=== PATIENT | female | born 1990 | race Caucasian/White ===

== ENCOUNTER 2017-11-08 09:27 | Emergency (ER) | payer MEDICAID, SELFPAY ==
[2017-11-08] MEDS ORDERED: Ondansetron ODT 4 MG TAB ONE (09:55)
[2017-11-08 10:28] LABS: #Eosinphils 0.1 thou/uL (0.0-0.7); #Lymphocytes 1.9 thou/uL (1.20-3.40); #Monocytes 0.4 thou/uL (0.11-0.59); #Neutrophils 3.7 thou/uL (1.40-6.50); %Basophils 0.5 % (0.0-1.0); %Neutrophils 59.6 % (42.0-75.0); Hemoglobin 13.3 g/dL (12.0-16.0); Mean Corpuscular HGB CONC 33.1 g/dL (32.0-36.0); Mean Corpuscular Hemoglobin 30.8 pg (27.0-31.0); Mean Corpuscular Volume 92.9 fL (78.0-98.0); Mean Platelet Volume 8.7 fL (7.4-10.4); Platelet Count 209 thou/uL (130-400); Red Blood Cell (RBC) Count 4.33 mill/uL (4.20-5.40); White Blood Cell (WBC) Count 6.2 thou/uL (4.8-10.8)
[2017-11-08 10:52] LABS: Bilirubin Negative (Negative); Blood, Urine Large (Negative); Glucose, Urine (Dipstick) Negative (Negative); Leukocyte Negative (Negative); Nitrite Negative (Negative); Protein, Urine (Dipstick) Negative (Neg-Trace); Urobilinogen 0.2 mg/dL (0.2-1.0)
[2017-11-08 10:54] LABS: Clarity Clear (Clear)
[2017-11-08 11:07] LABS: Bacteria/HPF None Seen HPF (None Seen); Hyaline Casts/LPF 0-3 HYALINE CAST LPF (0-3 Hyaline); Squamous Epithelial 0-3 HPF (0-3); WBC/HPF 0-3 HPF (0-3)
[2017-11-08 11:12] LABS: ALT (SGPT) 35 U/L (8-55); AST (SGOT) 48 U/L (5-34); Albumin 4.2 g/dL (3.5-5.0); Alkaline Phosphatase 53 U/L (40-150); Anion Gap 14 mmol/L (10-20); BUN (Urea Nitrogen) 10 mg/dL (7.0-18.7); Bilirubin, Total 0.3 mg/dL (0.2-1.2); Calc. Creatinine Clearance 0 mL/min (70-130); Calcium 8.9 mg/dL (7.8-10.44); Carbon Dioxide 19 mmol/L (22-29); Chloride 105 mmol/L (98-107); Estimated GFR-MDRD Greater than 90; Globulin 3.9 g/dL (2.4-3.5); Glucose 84 mg/dL (70-105); Protein, Total 8.1 g/dL (6.0-8.3); Sodium 132 mmol/L (136-145)
--- NOTE | 2017-11-08 11:31 | ULT ---
PELVIS ULTRASOUND: INDICATIONS: Elective AB seven days ago. Persistent vaginal bleeding. TECHNIQUE: Transabdominal ultrasound of the pelvis is performed. The patient refused endovaginal exam. FINDINGS: The uterus has a normal sonographic appearance. Uterine measurements recorded at 10 x 5 x 5.5 cm. The endometrial stripe appears within the normal range, measured at 6 to 8 mm. No endometrial fluid or abnormal echogenicity identified. Both ovaries are identified and appear unremarkable. Color Doppler and spectral analysis demonstrate blood flow to both ovaries. No free fluid. IMPRESSION: Unremarkable pelvic ultrasound. POS: [facility]
[2017-11-08 12:21] LABS: Anion Gap 12 mmol/L (10-20); BUN (Urea Nitrogen) 10 mg/dL (7.0-18.7); Calc. Creatinine Clearance 0 mL/min (70-130); Calcium 8.8 mg/dL (7.8-10.44); Carbon Dioxide 25 mmol/L (22-29); Chloride 105 mmol/L (98-107); Estimated GFR-MDRD Greater than 90; Glucose 81 mg/dL (70-105); Sodium 138 mmol/L (136-145)
== END 2017-11-08 13:00 | disposition home or self-care (01) ==
LOC: ERS 09:27
DX: N93.9 Abnormal uterine and vaginal bleeding, unspecified (principal); G43.909 Migraine, unspecified, not intractable, without status migrainosus
CPT/HCPCS: 36415; 76856; 80053; 81003; 81015; 84702; 85025; 93976; 96374; J2270; Q0162

== ENCOUNTER 2018-06-01 08:12 | Emergency (ER) | payer OTHER, SELFPAY ==
[2018-06-01 09:30] LABS: Bilirubin Negative (Negative); Blood, Urine Large (Negative); Clarity CLEAR (Clear); Glucose, Urine (Dipstick) Negative (Negative); Leukocyte Negative (Negative); Nitrite Negative (Negative); Protein, Urine (Dipstick) Negative (Neg-Trace); Urobilinogen 0.2 mg/dL (0.2-1.0); pH, Urine 5.5 (5.0-9.0)
[2018-06-01 09:32] LABS: Bacteria/HPF None Seen HPF (None Seen); Hyaline Casts/LPF 0-3 HYALINE CAST LPF (0-3 Hyaline); Pathc Cast-AUWi Flag 0.43 (0-2.49); Pregnancy Test - Urine (BHCG) Negative (Negative); Pregu Control Background? CLEAR/WHITE (CLR/WHITE); Pregu Control Bar Appear? YES (CONTROL BAR); RBC/HPF GREATER THAN 50-TNTC HPF (0-3); Squamous Epithelial 0-3 HPF (0-3); WBC/HPF 0-3 HPF (0-3)
--- NOTE | 2018-06-01 10:54 | ULT ---
PELVIC ULTRASOUND WITH DOPPLER: (Transabdominal, transvaginal, Tineo scale, color flow, and spectral Doppler) Date: 06/01/18 HISTORY: Vaginal bleeding and cramping. Negative test. FINDINGS: The uterus measures 8.6 x 3.9 x 4.6 cm, without focal mass or endometrial fluid. The endometrium josé miguel ures 4.0 mm in thickness. The right ovary measures 2.8 x 2.0 x 2.8 cm. The left ovary measures 4.0 x 2.9 x 3.9 cm. Flow is demo nstrated to both ovaries. There is a 2.6 cm complex septated cyst in the left ovary. There is a small amount of free fluid adjacent to the left ovary and in the cul-de-sac. IMPRESSION: 2.6 cm complex cystic mass in the left ovary. A follow-up exam is recommended in 8-10 weeks. POS: [facility]
[2018-06-02 21:24] LABS: Chlamydia by PCR DETECTED (NotDetected); GC by PCR DETECTED (NotDetected)
== END 2018-06-01 12:00 | disposition home or self-care (01) ==
LOC: ERS 08:12
DX: N83.202 Unspecified ovarian cyst, left side (principal); N76.0 Acute vaginitis; G43.909 Migraine, unspecified, not intractable, without status migrainosus; F41.9 Anxiety disorder, unspecified; F32.9 Major depressive disorder, single episode, unspecified
CPT/HCPCS: 76856; 81003; 81015; 81025; 87480; 87491; 87510; 87591; 87660

== ENCOUNTER 2018-06-03 10:59 | Emergency (ER) | payer OTHER ==
[2018-06-03] MEDS ORDERED: Azithromycin 250 MG TAB ONE (11:13)
[2018-06-03] MEDS ORDERED: Lidocaine 1% PF 5 ML VIAL ONE (11:13)
[2018-06-03] MEDS ORDERED: cefTRIAXone\\ROCEPHIN 250 MG VIAL ONE (11:13)
== END 2018-06-03 11:25 | disposition home or self-care (01) ==
LOC: ERS 10:59
DX: Z11.3 Encounter for screening for infections with a predominantly sexual mode of transmission (principal)
CPT/HCPCS: 96372; J0696; J2001

== ENCOUNTER 2018-09-26 08:05 | Emergency (ER) | payer SELFPAY | END 2018-09-26 09:15 | disposition home or self-care (01) | LOC: ERS 08:05 | DX: J02.9 Acute pharyngitis, unspecified (principal); F41.9 Anxiety disorder, unspecified; F32.9 Major depressive disorder, single episode, unspecified; G43.909 Migraine, unspecified, not intractable, without status migrainosus | CPT/HCPCS: 87081; 87430; 99283 ==

== ENCOUNTER 2019-01-03 09:03 | Emergency (ER) | payer OTHER, SELFPAY ==
[2019-01-03 10:55] LABS: Bilirubin Negative (Negative); Blood, Urine Negative (Negative); Clarity Clear (Clear); Glucose, Urine (Dipstick) Normal (Negative); Leukocyte 25 Leu/uL (Negative); Nitrite Negative (Negative); Protein, Urine (Dipstick) Negative (Neg-Trace); RBC/HPF 0-3 HPF (0-3); Urobilinogen Normal mg/dL (Less than 2); WBC/HPF 0-3 HPF (0-3)
[2019-01-03 10:59] LABS: #Eosinphils 0.2 thou/uL (0.0-0.7); #Lymphocytes 2.4 thou/uL (1.20-3.40); #Monocytes 0.6 thou/uL (0.11-0.59); %Basophils 0.4 % (0.0-1.0); %Eosinophils 2.2 % (0.0-10.0); %Lymphocytes 28.9 % (21.0-51.0); %Monocytes 7.1 % (0.0-10.0); %Neutrophils 61.4 % (42.0-75.0); Hemoglobin 11.9 g/dL (12.0-16.0); Mean Corpuscular HGB CONC 34.9 g/dL (32.0-36.0); Mean Corpuscular Hemoglobin 31.6 pg (27.0-31.0); Mean Corpuscular Volume 90.5 fL (78.0-98.0); Mean Platelet Volume 8.4 fL (7.4-10.4); Platelet Count 234 thou/uL (130-400); Red Blood Cell (RBC) Count 3.77 mill/uL (4.20-5.40); White Blood Cell (WBC) Count 8.1 thou/uL (4.8-10.8)
[2019-01-03 11:05] LABS: Bacteria/HPF 1+ HPF (None Seen)
[2019-01-03] MEDS ORDERED: Acetaminophen 500 MG TAB ONE (11:15)
[2019-01-03 11:18] LABS: ALT (SGPT) 15 U/L (8-55); AST (SGOT) 14 U/L (5-34); Albumin 3.7 g/dL (3.5-5.0); Alkaline Phosphatase 55 U/L (40-150); Anion Gap 12 mmol/L (10-20); BUN (Urea Nitrogen) 7 mg/dL (7.0-18.7); Bilirubin, Total 0.2 mg/dL (0.2-1.2); Calc. Creatinine Clearance 0 mL/min (70-130); Calcium 9.4 mg/dL (7.8-10.44); Carbon Dioxide 24 mmol/L (22-29); Chloride 103 mmol/L (98-107); Estimated GFR-MDRD Greater than 90; Globulin 3.3 g/dL (2.4-3.5); Glucose 61 mg/dL (70-105); Potassium 4.1 mmol/L (3.5-5.1); Sodium 135 mmol/L (136-145)
--- NOTE | 2019-01-03 12:06 | ULT ---
PELVIC ULTRASOUND: HISTORY: Pelvic pain. FINDINGS: Real-time imaging of the pelvis shows an intrauterine gestational sac and pole. heart ra te is 160 b.p.m. Gestational sac measurements are 5.6 cm corresponding to 11 weeks 4 days. [place] to rump length measurement is 5.3 mm corresponding to 123 weeks 0 days. Placenta cannot be localized a t this time. There is a tiny fluid collection adjacent to the gestational sac and along the margin o f what appears to be the anteriorly forming placenta could indicate a tiny subchorionic bleed. The left ovary is somewhat difficult to visualize but appears unremarkable. The right adnexa is nathan l in appearance. DOPPLER EVALUATION WITH SPECTRAL ANALYSIS: Normal flow is shown to both adnexa. IMPRESSION: 1. Single viable intrauterine with measurements corresponding to a gestational age of 11 w eeks 6 days, estimated date of delivery 07/19/2019. 2. Questionable tiny subchorionic bleed. This measures approximately 4-5 mm in thickness x 12 mm in length. POS: [facility]
== END 2019-01-03 13:07 | disposition home or self-care (01) ==
LOC: ERS 09:03
DX: O99.89 Other specified diseases and conditions complicating pregnancy, childbirth and the puerperium (principal); R10.2 Pelvic and perineal pain; O99.351 Diseases of the nervous system complicating pregnancy, first trimester; O99.341 Other mental disorders complicating pregnancy, first trimester; G43.909 Migraine, unspecified, not intractable, without status migrainosus; F31.9 Bipolar disorder, unspecified; Z3A.12 12 weeks gestation of pregnancy
CPT/HCPCS: 36415; 76856; 80053; 81003; 81015; 85025; 93976

== ENCOUNTER 2019-01-20 09:00 | Emergency (ER) | payer OTHER ==
[2019-01-20 09:38] LABS: #Eosinphils 0.2 thou/uL (0.0-0.7); #Lymphocytes 2.1 thou/uL (1.20-3.40); #Monocytes 0.4 thou/uL (0.11-0.59); #Neutrophils 4.2 thou/uL (1.40-6.50); %Basophils 0.4 % (0.0-1.0); %Eosinophils 2.7 % (0.0-10.0); %Lymphocytes 29.8 % (21.0-51.0); %Monocytes 6.4 % (0.0-10.0); %Neutrophils 60.8 % (42.0-75.0); Hemoglobin 12.2 g/dL (12.0-16.0); Mean Corpuscular HGB CONC 35.1 g/dL (32.0-36.0); Mean Corpuscular Hemoglobin 31.2 pg (27.0-31.0); Mean Corpuscular Volume 88.9 fL (78.0-98.0); Mean Platelet Volume 8.5 fL (7.4-10.4); Platelet Count 218 thou/uL (130-400); RBC Distribution Width 11.9 % (11.5-14.5); White Blood Cell (WBC) Count 6.9 thou/uL (4.8-10.8)
[2019-01-20] MEDS ORDERED: Acetaminophen 500 MG TAB ONE (09:40)
--- NOTE | 2019-01-20 09:56 | ULT ---
Exam: OB ultrasound Limited: HISTORY: Abdominal cramping and vaginal bleeding. Transabdominal OB ultrasound greater than 14 weeks is performed. Single viable intrauterine fetus is noted in variable presentation. Placenta is anterior. Amniotic fl uid is within normal limits. heart rate 150 bpm. anatomy was not evaluated. biometry: BPD 2.4 cm--14 weeks 0 days Head circumference 9.8 cm--14 weeks 4 days Abdominal circumference 8.0 cm--14 weeks 3 days Femur length 1.4 cm--14 weeks 0 days There is a small fluid collection anteriorly the left side of the placenta concerning for small subch orionic hemorrhage. IMPRESSION: Early viable intrauterine at 14 weeks 1 day EDC 07/20/2019 Persistent small fluid collection adjacent to the placenta concerning for subchorionic hemorrhage.
[2019-01-20 11:19] LABS: Bacteria/HPF None Seen HPF (None Seen); Bilirubin Negative (Negative); Blood, Urine Trace (Negative); Clarity Clear (Clear); Glucose, Urine (Dipstick) Normal (Negative); Leukocyte Negative Leu/uL (Negative); Nitrite Negative (Negative); Protein, Urine (Dipstick) 10 mg/dL (Neg-Trace); Squamous Epithelial 0-3 HPF (0-3); WBC/HPF 0-3 HPF (0-3)
== END 2019-01-20 11:45 | disposition home or self-care (01) ==
LOC: ERS 09:00
DX: O20.0 Threatened abortion (principal); O99.342 Other mental disorders complicating pregnancy, second trimester; F31.9 Bipolar disorder, unspecified; Z3A.14 14 weeks gestation of pregnancy
CPT/HCPCS: 36415; 76815; 81003; 81015; 84702; 85025; 86900; 86901

== ENCOUNTER 2019-05-22 13:47 | Day surgery (SDC) | payer OTHER ==
[2019-05-22 14:08] VITALS: BMI 35.4
[2019-05-22 14:19] VITALS: BP 122/59; TEMP 99.1
[2019-05-22] MEDS ORDERED: hydrALAZINE 20 MG/ML VIAL SLOW IVP PRN (14:33)
[2019-05-22 15:34] LABS: Bilirubin Negative (Negative); Blood, Urine Negative (Negative); Clarity Clear (Clear); Glucose, Urine (Dipstick) Normal (Negative); Leukocyte Negative Leu/uL (Negative); Nitrite Negative (Negative); Protein, Urine (Dipstick) Negative (Neg-Trace); RBC/HPF 0-3 HPF (0-3); Squamous Epithelial 0-3 HPF (0-3); Urobilinogen Normal mg/dL (Less than 2); WBC/HPF 0-3 HPF (0-3)
[2019-05-22 15:35] LABS: Bacteria/HPF Rare-Few HPF (None Seen)
--- NOTE | 2019-05-23 07:44 | PRG ---
DATE OF SERVICE: 05/22/2019 PRIMARY OB: Brandon Lozada MD CHIEF COMPLAINT: Abdominal cramping. HISTORY OF PRESENT ILLNESS: The patient is a 28-year-old, G6, P3 female with an intrauterine at 30 weeks and 5 days, presenting to Labor and Delivery at the recommendation of her physician for abdominal cramping. The patient reports that she has been feeling since about 11 o'clock this morning and cramping that she initially timed at about every 5 to 6 minutes. She says they last may be 10 seconds or so. They are not incredibly painful, but are present and came following the doctor's recommendations. The patient does report a urinary tract infection earlier in this , but denies any urinary urgency or frequency. She reports she had intercourse a couple of days ago. She reports she is having more discharge than usual, but no odor and no change in the quality of the discharge. She denies any fever, illness, cough, chest pain, or shortness of breath. She is having nausea with isolated episodes of vomiting. Denies diarrhea or constipation. Denies new rashes, hip problems, knee problems, or muscle weakness. She has been having quite a bit of pelvic pain with activity and movement with difficulty lifting and moving her legs now for several weeks. She denies any new rashes. Denies vaginal bleeding or leakage of fluid, urinary urgency or frequency. The patient gets headaches on occasion, couple days a week, resolves with Tylenol usually. PAST MEDICAL HISTORY: Headaches. PAST SURGICAL HISTORY: D and C. SOCIAL HISTORY: Denies drug, alcohol, or tobacco use. ALLERGIES: NO KNOWN DRUG ALLERGIES. MEDICATIONS: vitamins. SOCIAL HISTORY: Denies drug, alcohol, or tobacco use. OB LABS: Blood type is O positive. Antibody screen is negative. VDRL is nonreactive. Hepatitis B surface antigen nonreactive. HIV nonreactive. GC chlamydia negative. She is rubella immune. Her one-hour Glucola is 117. REVIEW OF SYSTEMS: Per HPI. PHYSICAL EXAMINATION: VITAL SIGNS: Blood pressure is 122/66, heart rate of 85, respiratory rate of 20, saturating 95% to 97% on room air, temperature 99.0. GENERAL: She appears to be in no acute distress. She is alert, oriented, cooperative, and pleasant to interact with. HEAD: Normocephalic, atraumatic. LUNGS: Clear to auscultation bilaterally. HEART: Has regular rate and rhythm. ABDOMEN: Gravid, soft, nontender. EXTREMITIES: Nontender. Nonedematous. GENITOURINARY: Vulva is without masses, lesions, or erythema. Vagina is moist. There is minimal discharge present. No unusual odor or color of concern. On digital exam, cervix is closed and thick with very ballotable baby putting no significant pressure on the cervix itself. She does have some significant pain to palpation of her pelvic floor muscles on the right more so than the left. heart tracing baseline is noted to be in the 130s with moderate long-term variability, positive 15/15 accelerations, and no significant decelerations. Tocometer showing some irritability, but no contraction pattern. LABORATORY DATA: UA has been sent and is pending. ASSESSMENT AND PLAN: The patient is a 28-year-old, G6, P3 female having some intermittent cramping. No evidence of labor at this time as she has been having this cramping now for about 4 hours and not developing any significant pattern. Fetus has a category 1 tracing, reactive NST. The patient does show some evidence of contractions, not all felt by the patient. As the patient has no evidence of labor with a closed cervix and no concerns on exam of labored cervix, I have withheld sending a fibronectin. I have not sent VP3 as the patient does not have any discharge to speak of vaginally and the patient denies any douching or washing of her vaginal canal. Once the UA is back, we will plan on discharging the patient with or without antibiotics depending on our findings and will be counseled to follow up with her primary OB as scheduled. Reassurance will be given to her. Job ID: [id number]
== END 2019-05-22 16:01 | disposition home health service (06) ==
LOC: L&D/OP 13:47 → L&D 15:00 → L&D/OP 16:01
PROVIDERS: ATTEND Obstetrics & Gynecology
DX: O99.89 Other specified diseases and conditions complicating pregnancy, childbirth and the puerperium (principal); R10.9 Unspecified abdominal pain; Z3A.30 30 weeks gestation of pregnancy
CPT/HCPCS: 59025; 81001; 99283

== ENCOUNTER 2019-07-06 16:37 | Day surgery (SDC) | payer OTHER ==
[2019-07-06 17:14] VITALS: BP 136/81; TEMP 98.7
--- NOTE | 2019-07-06 18:09 | PDOC.FPROB ---
FMR OB H&P: HPI - History of Present Illness Chief Complaint: Low back pain Indentification: 28 year old at 37.1 wks History of Present Illness: 28 year old at 37.1 wks presents with low back pain and contractions since this afternoon. Patient denies leaking of fluid, vaginal discharge, or vaginal bleeding. Endorses good movement. Primary Care Physician: Kierra FMR OB H&P: Current - Care : 7 Para: [id number] Gestational age: 37.1 wks Due date: 07/26/2019 - OB Labs Blood type: O RH: positive Antibody Screen: negative HIV: negative RPR: negative HepBsAg: negative Rubella: immune Gonorrhea: negative Chlamydia: negative Pap Smear: NILM GBS: negative FMR OB H&P: History - Past Medical History PMH: Hx of headaches - OB History OB History: SAB x3 x3 - COOKIE PADDER History COOKIE PADDER History: Endorses history of gonorrhea - Surgical History Sx History: Denies - Social History Social History: Denies history of alcohol, tobacco, or drug use FMR OB H&P: Medications - Current Home Medications: Medication Instructions Recorded Confirmed Type Vitamin 1 tablet PO DAILY 07/06/19 07/06/19 History Allergies/Adverse Reactions: Allergies Allergy/AdvReac Type Severity Reaction Status Date / Time No Known Allergies Allergy Verified 05/22/19 14:27 FMR OB H&P: ROS - Review of Systems General: denies: fever/chills, fatigue Eyes: denies: vision changes, scotomas ENT: denies: nasal congestion, rhinorrhea, sore throat Respiratory: denies: cough, congestion, shortness of breath Gastrointestinal: reports: abdominal pain. denies: nausea, vomiting, diarrhea Genitourinary (Female): reports: contractions. denies: dysuria, vaginal discharge, vaginal bleeding Musculoskeletal: denies: pain, stiffness Neurologic: denies: numbness, syncope Integumentary: denies: itching, rash, lesions Psychological: denies: depression, anxiety FMR OB H&P: Vital Signs - Maternal Vital signs: Vital Signs - First Documented Temp Pulse Resp BP Pulse Ox 98.7 F 80 20 136/81 99 07/06/19 17:11 07/06/19 17:11 07/06/19 17:11 07/06/19 17:11 07/06/19 17:11 - Heart Tones Baseline: 150 Variability: moderate Acceleration: present Deceleration: absent Category: category 1 Clio contractions every: q1-2 min FMR OB H&P: Physical Exam - Physical Exam General: NAD, awake, alert and oriented HEENT: MMM, grossly normal vision, grossly normal hearing Breast: non-tender Heart: RRR, pulses present General: no respiratory distress Abdomen: soft, gravid Musculoskeletal: pulses present, FROM in all four extremities Neurological: no tremor, no focal deficit Skin: no rash, capillary refill <2 seconds Lymphatic: no unusual bruising or bleeding, no purpura Psychiatric: intact recent and remote memory, good judgement and insight, normal mood and affect - Pelvic Exam SVE: FMR OB H&P: A/P - Problem List (1) Term Current Visit: Yes Status: Acute Code(s): Z34.90 - ENCNTR FOR SUPRVSN OF NORMAL , UNSP, UNSP TRIMESTER Disposition: 28 year old at 37.1 wks Term - Contractions q2-3 minutes, spaced out after PO hydration - Initial SVE , no change after 2 hours. Still remains thick. - Category I strip; initially tachycardia which improved after PO hydration - Return precautions provided to include leaking of fluid, continued painful contractions, decreased movement tachycardia - Resolved after PO hydration Marginal previa, resolved Dispo: No change after 2 hours. Discharge home with return precautions. Discussion: Date/Time: 07/06/191807 This H&P was discussed with Dr. Solano who agrees with the above documentation and plan. Signature: Marge Nunn DO PGY-3 Addendum - Attending - Attending Attestation Date/Time: 07/06/192146 I personally evaluated the patient and discussed the management with Dr. Nunn. I agree with the History, Examination, Assessment and Plan documented above.
== END 2019-07-06 19:07 | disposition home or self-care (01) ==
LOC: L&D/OP 16:37
PROVIDERS: ATTEND Obstetrics & Gynecology
DX: O47.1 False labor at or after 37 completed weeks of gestation (principal); O99.89 Other specified diseases and conditions complicating pregnancy, childbirth and the puerperium; M54.5 Low back pain; O36.8330 Maternal care for abnormalities of the fetal heart rate or rhythm, third trimester, not applicable or unspecified; Z3A.37 37 weeks gestation of pregnancy

== ENCOUNTER 2019-07-10 16:22 | Inpatient (IN) | payer OTHER ==
[~2019-07-10 16:22] MED LIST: Bupivacaine 0.25% HCL 30 ML VIAL ONE
[2019-07-10 17:01] VITALS: BMI 36.1
[2019-07-10] MEDS ORDERED: hydrALAZINE 20 MG/ML VIAL SLOW IVP PRN ×2 (17:07→20:13)
[2019-07-10] MEDS ORDERED: Lactated Ringer's 1,000 ML IV SCH ×2 (17:30→20:15)
[2019-07-10 17:48] LABS: #Eosinphils 0.1 thou/uL (0.0-0.7); #Lymphocytes 2.4 thou/uL (1.20-3.40); #Monocytes 1.1 thou/uL (0.11-0.59); #Neutrophils 11.5 thou/uL (1.40-6.50); %Eosinophils 0.4 % (0.0-10.0); %Lymphocytes 15.8 % (21.0-51.0); %Monocytes 7.5 % (0.0-10.0); %Neutrophils 76.3 % (42.0-75.0); Hemoglobin 11.1 g/dL (12.0-16.0); Mean Corpuscular HGB CONC 35.2 g/dL (32.0-36.0); Mean Corpuscular Hemoglobin 31.3 pg (27.0-31.0); Mean Corpuscular Volume 88.9 fL (78.0-98.0); Mean Platelet Volume 10.8 fL (7.4-10.4); Platelet Count 188 thou/uL (130-400); RBC Distribution Width 12.2 % (11.5-14.5); Red Blood Cell (RBC) Count 3.55 mill/uL (4.20-5.40); White Blood Cell (WBC) Count 15.1 thou/uL (4.8-10.8)
[2019-07-10] MEDS ORDERED: Acetaminophen 500 MG TAB PO SCH (18:00)
[2019-07-10] MEDS: Lactated Ringer's 1,000 ML IV SCH (18:01)
[2019-07-10 18:10] LABS: ALT (SGPT) 9 U/L (8-55); AST (SGOT) 18 U/L (5-34); Albumin 3.4 g/dL (3.5-5.0); Alkaline Phosphatase 132 U/L (40-110); Anion Gap 13 mmol/L (10-20); BUN (Urea Nitrogen) 7 mg/dL (7.0-18.7); Bilirubin, Total 0.3 mg/dL (0.2-1.2); Calc. Creatinine Clearance 233 mL/min (70-130); Carbon Dioxide 20 mmol/L (22-29); Chloride 105 mmol/L (98-107); Estimated GFR-MDRD Greater than 90; Globulin 3.1 g/dL (2.4-3.5); Glucose 79 mg/dL (70-105); Protein, Total 6.5 g/dL (6.0-8.3); Sodium 134 mmol/L (136-145)
[2019-07-10 18:19] LABS: Bacteria/HPF None Seen HPF (None Seen); Bilirubin Negative (Negative); Blood, Urine 1+ (Negative); Clarity Clear (Clear); Glucose, Urine (Dipstick) Normal (Negative); Leukocyte 75 Leu/uL (Negative); Nitrite Negative (Negative); Protein, Urine (Dipstick) 10 mg/dL (Neg-Trace); RBC/HPF 0-3 HPF (0-3); Squamous Epithelial 0-3 HPF (0-3)
[2019-07-10] MEDS ORDERED: Ibuprofen 800 MG TAB PO PRN (20:13)
[2019-07-10] MEDS ORDERED: Acetaminophen 500 MG TAB PO PRN (20:13)
[2019-07-10] MEDS ORDERED: Methylergonovine 0.2 MG/ML VIAL IM PRN (20:13)
[2019-07-10] MEDS ORDERED: Ondansetron PF 4 MG/2 ML Vial IVP PRN ×2 (20:13→22:29)
[2019-07-10] MEDS ORDERED: Diphenoxylate HCl/Atropine Tablet PO PRN ×2 (20:13)
[2019-07-10] MEDS ORDERED: Lidocaine 1% (PF) 30 ML VIAL SC PRN (20:13)
[2019-07-10] MEDS ORDERED: Zolpidem Tartrate 5 MG TAB PO PRN (20:13)
[2019-07-10] MEDS ORDERED: Misoprostol 200 MCG TAB PR PRN (20:13)
[2019-07-10] MEDS ORDERED: Carboprost 250 MCG/ML AMP IM PRN (20:13)
[2019-07-10] MEDS ORDERED: Butorphanol Tartrate 1 MG/ML VIAL SLOW IVP PRN (20:13)
[2019-07-10] MEDS ORDERED: Promethazine HCl 25 MG/ML VIAL IM PRN ×2 (20:13→22:29)
[2019-07-10] MEDS ORDERED: HYDROcodone/Acetaminophen 5/325 mg Tablet PO PRN ×2 (20:13)
--- NOTE | 2019-07-10 20:22 | PDOC.LDHP ---
Labor and Delivery H&P Chief complaint: contractions HPI: 28 y/o at 37 and 5/7 weeks presents to L&D with contractions, pain,and cervix at 4cm. WBC count is at 15K. Recent sick contact with her son - possible a virus. Cannot completely exclude chorioamnionitis from the differential. Case discussed with Dr. Chase MD who triaged her, and proceeding with delivery is indicated. Current gestational age (weeks): 37 Due date: 07/26/19 Grav: 7 Para: 3 Current complications: other (Obesity) Abnormal US findings: No Current medications: pre- vitamins Previous surgical history: none Allergies/Adverse Reactions: Allergies Allergy/AdvReac Type Severity Reaction Status Date / Time No Known Allergies Allergy Verified 07/10/19 17:01 Social history: none - Physical Exam Vital signs reviewed and normal: yes General: NAD, resting Heart: RRR Lungs: nonlabored breathing Abdomen: gravid Extremeties: no edema - Assessment L&D Assessment: term patient in labor - Plan Plan: admit to L&D, labor augmentation if indicated
[2019-07-10] MEDS ORDERED: NS w/ Oxytocin 10 units 500 ML ONE (20:38)
[2019-07-10] MEDS ORDERED: NS w/ Oxytocin 10 units 500 ML IV SCH ×2 (20:45)
[2019-07-10 20:46] LABS: Hemoglobin 10.2 g/dL (12.0-16.0); Mean Corpuscular HGB CONC 34.4 g/dL (32.0-36.0); Mean Corpuscular Hemoglobin 30.8 pg (27.0-31.0); Mean Corpuscular Volume 89.5 fL (78.0-98.0); Mean Platelet Volume 10.5 fL (7.4-10.4); Platelet Count 187 thou/uL (130-400); RBC Distribution Width 12.2 % (11.5-14.5); Red Blood Cell (RBC) Count 3.33 mill/uL (4.20-5.40); White Blood Cell (WBC) Count 14.9 thou/uL (4.8-10.8)
[2019-07-10 20:57] LABS: Syphilis Antibody Nonreactive (Nonreactive); Syphilis Antibody Index 0.05 S/CO (<1.00 Non-Reactive)
[2019-07-10] MEDS ORDERED: Fentanyl 4 mcg/Bup 0.1% Cadd 100 ML ONE (21:00)
[2019-07-10] MEDS ORDERED: CEFAZOLIN 2 GM in Premix Bag 1 BAG IVPB SCH (21:00)
[2019-07-10] MEDS ORDERED: Lactated Ringer's 500 ML IV PRN (22:29)
[2019-07-10] MEDS ORDERED: EPHEDRINE 25 MG/5 ML SYRINGE SLOW IVP PRN (22:29)
[2019-07-10] MEDS ORDERED: diphenhydrAMINE 50 MG/ML VIAL IVP PRN (22:29)
[2019-07-10] MEDS ORDERED: Naloxone HCl 0.4 mg/ml Vial IVP PRN ×2 (22:29)
[2019-07-10] MEDS ORDERED: Acetaminophen 325 MG TAB PO PRN (22:29)
[2019-07-10] MEDS ORDERED: Fentanyl 4 mcg/Bupivacaine 0.1% Cassette 100 ML EPIDURAL SCH (22:30)
[2019-07-10] MEDS ORDERED: Communication Order-Pharmacy FS SCH (22:30)
[2019-07-10 22:57] LABS: HBSAg Index 0.17 S/CO (0-0.99); Hep B Surf Ag Non-Reactive S/CO (NonReactive)
[2019-07-11] MEDS: NS / Oxytocin 40 units/1000ml 1,000 ML IV PRN ×2 (00:04→01:37)
--- NOTE | 2019-07-11 01:03 | HP ---
REGULAR PHYSICIAN: Brandon Lozada MD. CHIEF COMPLAINT: Decreased movement. HISTORY OF PRESENT ILLNESS: Ms. Alcala is a 28-year-old white G4, P3, with an estimated date of confinement of 07/26/2019, who presents complaining of decreased movement at home since having her membranes stripped in Dr. Lozada's office this afternoon. She denies leakage of fluid, but has had some spotting since that time. Of note is the fact that she said her son was sick at home with a viral- type syndrome approximately a week ago. PAST OBSTETRICAL HISTORY: Includes three vaginal deliveries at term. PAST MEDICAL HISTORY: None. PAST SURGICAL HISTORY: D and C. CURRENT MEDICATIONS: vitamins. ALLERGIES: NO KNOWN ALLERGIES. SOCIAL HISTORY: Denies tobacco, alcohol, or drug use. FAMILY HISTORY: Unremarkable. REVIEW OF SYSTEMS: Denies nausea, vomiting, chills, or ruptured membranes. PHYSICAL EXAMINATION: VITAL SIGNS: Temperature in triage was 101.2. GENERAL: She is pleasant and in no acute distress. CHEST: Clear to auscultation. CARDIOVASCULAR: Regular rate and rhythm. ABDOMEN: Soft, nontender, and gravid. PELVIC: Per report from Dr. Lozada was 4 cm in his office. heart tones are in the 160s with decreased variability. No decelerations were seen. Intermittent contractions are noted. LABORATORY DATA: White count 15.1, hemoglobin and hematocrit 11.1 and 31.5, and platelet count 188,000. Chemistry; sodium 134, potassium 4.0, creatinine 0.6, glucose 79, total bilirubin 0.3, AST and ALT are 18 and 9. Urine is clear, specific gravity of 1.021 with negative ketones, negative glucose, +1 blood, negative nitrites, and trace leukocyte esterase. On microscopic, there are 0 to 3 rbc's , 4 to 6 wbc's, 0 to 3 squamous cells, and no bacteria seen. ASSESSMENT: 1. 37 and 5/7th week intrauterine . 2. Maternal fever with elevated white count. 3. Spotting status post having her membranes stripped in the office by Dr. Lozada. PLAN: I have discussed the clinical scenario with Dr. Lozada. I have discussed the fever and the decreased variability with him as well. He stated that he would speak with the labor nurses regarding orders for induction and delivery. Job ID: [id number] [facility]
[2019-07-11] MEDS ORDERED: HYDROcodone/Acetaminophen 5/325 mg Tablet PO PRN ×4 (03:38→03:50)
[2019-07-11] MEDS ORDERED: Milk Of Magnesia 30 ML UDCUP PO PRN (03:38)
[2019-07-11] MEDS ORDERED: Lanolin Ointment 7 GM TUBE TOP PRN (03:38)
[2019-07-11] MEDS ORDERED: hydrALAZINE 20 MG/ML VIAL SLOW IVP PRN (03:38)
[2019-07-11] MEDS ORDERED: Bisacodyl 10 MG SUPP PR PRN (03:38)
[2019-07-11] MEDS ORDERED: Promethazine HCl 25 MG/ML VIAL IM PRN (03:38)
[2019-07-11] MEDS ORDERED: diphenhydrAMINE 25 MG CAP PO PRN (03:38)
[2019-07-11] MEDS ORDERED: Methylergonovine 0.2 MG/ML VIAL IM PRN (03:38)
[2019-07-11] MEDS ORDERED: NS / Oxytocin 40 units/1000ml 1,000 ML IV SCH (03:38)
[2019-07-11] MEDS ORDERED: Ondansetron PF 4 MG/2 ML Vial IVP PRN (03:38)
[2019-07-11] MEDS ORDERED: Preparation H Ointment 57 gram tube RC PRN (03:38)
[2019-07-11] MEDS ORDERED: Zolpidem Tartrate 5 MG TAB PO PRN (03:38)
[2019-07-11] MEDS ORDERED: Benzocaine-Menthol 82.5 ML CAN TOP PRN (03:38)
[2019-07-11] MEDS ORDERED: Ibuprofen 800 MG TAB PO SCH (04:00)
[2019-07-11] MEDS: Prenatal Vitamin 1 TAB PO SCH (08:36)
[2019-07-11] MEDS: Ibuprofen 800 MG TAB PO SCH ×3 (08:37→22:19)
[2019-07-11] MEDS: Docusate Calcium (SURFAK) 240 MG CAP PO SCH ×2 (08:37→19:48)
[2019-07-11] MEDS ORDERED: Adacel (T-DAP) 0.5 ML SYRINGE IM ONE (09:00)
[2019-07-11] MEDS ORDERED: Varicella virus, LIVE 0.5 ML VIAL SC ONE (09:00)
[2019-07-11] MEDS ORDERED: Measles/Mumps/Rubella 10 MCG/0.5 ML VIAL SC ONE (09:00)
[2019-07-11] MEDS: Ferrous Sulfate 325 MG TAB PO SCH ×2 (10:01→14:29)
[2019-07-11] MEDS: Lactated Ringer's 1,000 ML IV SCH (10:03)
--- NOTE | 2019-07-11 12:23 | PDOC.PP ---
Post Progress Note Post Day #: 1 PO intake tolerated: yes Flatus: yes Ambulation: yes Vital Signs (12 hours) Temp Pulse Resp BP 07/11/19 11:41 98.9 F 74 20 106/58 L 07/11/19 09:52 98.2 F 77 20 104/48 L Weight Weight 231 lb - Physical Examination General: NAD Cardiovascular: no m/r/g, RRR Respiratory: clear to auscultation bilaterally, non-labored breathing Abdominal: + bowel sounds, lochia, no distention, appropriately TTP Extremities: negative homans (B) Neurological: no gross focal deficits Psychiatric: A&Ox3, normal affect Result Diagrams: 07/10/19 20:29 07/10/19 17:36 Additional Labs: Post Labs Blood Type O POSITIVE 07/10/19 17:36 Hep Bs Antigen Non-Reactive S/CO (NonReactive) 07/10/19 17:36
[2019-07-12] MEDS: Ibuprofen 800 MG TAB PO SCH ×2 (06:37→13:50)
[2019-07-12] MEDS: Docusate Calcium (SURFAK) 240 MG CAP PO SCH (09:21)
[2019-07-12] MEDS: Prenatal Vitamin 1 TAB PO SCH (09:22)
[2019-07-12] MEDS: Ferrous Sulfate 325 MG TAB PO SCH (09:22)
[2019-07-12 11:49] VITALS: BP 122/76; TEMP 99.1
== END 2019-07-12 15:56 | disposition home or self-care (01) | DRG 806 ==
LOC: L&D/OP 16:22 → L&D 21:51 → 3SE 07-11 10:07
PROVIDERS: ADMIT Obstetrics & Gynecology; ATTEND Obstetrics & Gynecology
PROC: 10E0XZZ Delivery of Products of Conception, External Approach (ICD-10-PCS; principal; 2019-07-10)
DX: O76 Abnormality in fetal heart rate and rhythm complicating labor and delivery (principal); O75.2 Pyrexia during labor, not elsewhere classified; Z37.0 Single live birth; O99.214 Obesity complicating childbirth; E66.9 Obesity, unspecified; Z3A.39 39 weeks gestation of pregnancy
CPT/HCPCS: 36415; 51702; 80053; 81003; 81015; 85025; 86780; 86850; 86900; 86901; 87340; 87804; 99285; J0690; J2405; J2590; S0020

== ENCOUNTER 2022-02-05 15:34 | Emergency (ER) | payer OTHER ==
[2022-02-05] MEDS ORDERED: Fentanyl 100 MCG/2 ML VIAL ONE (15:54)
[2022-02-05] MEDS ORDERED: Ketorolac Tromethamine 30 MG/ML VIAL ONE (17:03)
== END 2022-02-05 17:36 | disposition home or self-care (01) ==
LOC: ERS 15:34
DX: M54.2 Cervicalgia (principal); R51.9 Headache, unspecified; V49.10XA Passenger injured in collision with unspecified motor vehicles in nontraffic accident, initial encounter; Y92.410 Unspecified street and highway as the place of occurrence of the external cause
CPT/HCPCS: 70450; 72125; 96372; J1885; J3010

== ENCOUNTER 2023-09-28 16:31 | Emergency (ER) | payer MEDICAID, OTHER, SELFPAY ==
[2023-09-28] MEDS ORDERED: Acetaminophen 500 MG TAB ONE (18:11)
[2023-09-28 18:20] LABS: #Basophils 0.04 10x3/uL (0.0-0.2); %Basophils 0.4 % (0.0-1.0); %Eosinophils 2.9 % (0.0-10.0); %Lymphocytes 30.4 % (21.0-51.0); %Monocytes 5.5 % (0.0-10.0); %Neutrophils 60.6 % (42.0-75.0); Hematocrit 39.4 % (36.0-47.0); Hemoglobin 13.1 g/dL (12.0-16.0); Mean Corpuscular HGB CONC 33.2 g/dL (32.0-36.0); Mean Corpuscular Volume 87.4 fL (78.0-98.0); Mean Platelet Volume 10.9 fL (7.4-10.4); Platelet Count 274 10x3/uL (130-400); RBC Distribution Width 13.3 % (11.5-14.5); Red Blood Cell (RBC) Count 4.51 mill/uL (4.20-5.40)
[2023-09-28 18:36] LABS: Anion Gap 13 mmol/L (10-20); BUN (Urea Nitrogen) 10 mg/dL (7.0-18.7); Calc. Creatinine Clearance 0 mL/min (70-130); Calcium 10.1 mg/dL (7.8-10.44); Carbon Dioxide 27 mmol/L (22-29); Chloride 101 mmol/L (98-107); Estimated GFR 111; Glucose 84 mg/dL (70-105); Lipase 98 U/L (8-78); Potassium 3.5 mmol/L (3.5-5.1); Sodium 137 mmol/L (136-145)
[2023-09-28 18:42] LABS: Troponin I Less than 0.010 ng/mL (< 0.028)
[2023-09-28 18:59] LABS: Bacteria/HPF None Seen HPF (None Seen); Bilirubin Negative (Negative); Blood, Urine 1+ (Negative); CAUTI Indications for Culture Pelvic or flank pain; Clarity Clear (Clear); Glucose, Urine (Dipstick) Normal (Negative); Ketone, Urine 20 mg/dL (Negative); Leukocyte Negative Leu/uL (Negative); Nitrite Negative (Negative); Pregnancy Test - Urine (BHCG) Negative (Negative); Pregu Control Background? CLEAR/WHITE (CLR/WHITE); Pregu Control Bar Appear? YES (CONTROL BAR); Protein, Urine (Dipstick) 10 mg/dL (Neg-Trace); Specific Gravity 1.059 (1.002-1.036); Specific Gravity, Urine 1.059 (1.002-1.036); Squamous Epithelial 0-3 HPF (0-3); Urobilinogen Normal mg/dL (Less than 2); WBC/HPF 0-3 HPF (0-3)
[2023-09-28 19:00] LABS: Urine Culture Reflex No No
== END 2023-09-28 19:54 | disposition home or self-care (01) ==
LOC: ERS 16:31
DX: K62.5 Hemorrhage of anus and rectum (principal); R55 Syncope and collapse; I10 Essential (primary) hypertension
CPT/HCPCS: 36415; 80048; 81001; 81025; 83605; 83690; 84484; 85025; 86850; 86900; 86901; 93005